=== PATIENT | female | born 1960 | race Caucasian/White ===

== ENCOUNTER 2024-06-20 08:58 | Outpatient (OUT) | payer MEDICARE, SELFPAY ==
--- NOTE | 2024-06-20 09:18 | MM_ITS ---
Patient Name: SUSANNE CHERY MR#: [id number] : 1960 Exam Date: 06/20/2024 Ordering Doctor: DR. PEARL STEELE . RADIOLOGY REPORT PROCEDURE: MM TOMOSYNTHESIS SCREENING BI COMPARISON: MG MAMM SCREEN 3D WERNER CAD, 06/07/2021. INDICATIONS: Screening Calculator Name NCI Breast Cancer Risk Assessment Tool 5 Year Breast Cancer Risk 2.10% Lifetime Breast Cancer Risk 7.30% Personal Breast Cancer No Personal Ovarian Cancer No Treatments None Family Cancers Mother with colon cancer at age 64. LOCATION: [facility] BREAST COMPOSITION: There are scattered areas of fibroglandular density. FINDINGS: DIAGNOSTIC CATEGORY 1--NEGATIVE. NO CHANGE FROM COMPARISON ASSESSMENT. Scattered benign-appearing calcifications are present. RIGHT BREAST: No significant suspicious finding. LEFT BREAST: No significant suspicious finding. RECOMMENDATIONS: ROUTINE MAMMOGRAM AND CLINICAL EVALUATION IN 12 MONTHS. PLEASE NOTE: A NORMAL MAMMOGRAM DOES NOT EXCLUDE THE POSSIBILITY OF BREAST CANCER. A CLINICALLY SUSPICIOUS PALPABLE LUMP SHOULD BE BIOPSIED. Dictated by: Jerrell Bradford MD on 06/20/2024 at 14:14 Approved by: Jerrell Bradford MD on 06/20/2024 at 14:15
== END 2024-06-20 08:59 | disposition home or self-care (01) ==
LOC: MAMMO 08:58
PROVIDERS: PCP Family Medicine; Visit Provider Family Medicine
DX: Z12.31 Encounter for screening mammogram for malignant neoplasm of breast (principal); Z80.0 Family history of malignant neoplasm of digestive organs
CPT/HCPCS: 77063; 77067

== ENCOUNTER 2025-06-25 09:23 | Outpatient (OUT) | payer MEDICARE, SELFPAY ==
--- OUTSIDE RECORDS SUMMARY | 2025-06-25 09:26 | XMS_ITS | Clinical Summary ---
Author Organization [facility] Address [address] [place] [address] Care Team Providers Care Design And Sales Consultant Name Role Phone Dacia Norwood MD Primary Care Provider [phone] Allergies Active AllergyReactionsCriticalityNoted DateCommentsAlendronateGI Upset 02/07/2022 GI upset/digestive issues Medications MedicationSigDispense QuantityRefillsLast FilledStart DateEnd DateStatus cyanocobalamin (VITAMIN B-12) 1,000 mcg tab Take 1,000 mcg by mouth once daily.09/04/2021ctive ascorbic acid (VITAMIN C ORAL) Take by mouth once daily.Active losartan (COZAAR) 50 mg tablet Take 50 mg by mouth once daily.12/22/2021ctive dicyclomine (BENTYL) 10 mg capsule Take 10 mg by mouth.11/10/2022ctive predniSONE (DELTASONE) 5 mg tablet Indications:Rheumatoid arthritis involving multiple sites with positive rheumatoid factor (HCC)TAKE 6 TABS X1DAY,5 TABS X1DAY,4 TABS X1DAY,3 TABS X1DAY,2 TABS X1DAY,THEN 2 TABS DAILY*WITH FOOD 21 tablet ctive Ibandronate (BONIVA) 150 mg tablet Indications:Steroid-induced osteoporosisTake 1 tablet by mouth once every month. In AM with cup of water on empty stomach. Nothing else by mouth and stay upright for 60 min. 3 tablet 5Active hydrOXYchloroQUINE (PLAQUENIL) 200 mg tablet Indications:Rheumatoid arthritis involving multiple sites with positive rheumatoid factor (HCC)Take 1.5 tablets by mouth once daily. 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 May cause diarrhea. 60 tablet 5Active leflunomide (ARAVA) 10 mg tablet Indications:Rheumatoid arthritis involving multiple sites with positive rheumatoid factor (HCC)TAKE 1 TABLET BY MOUTH EVERY DAY WITH FOOD.NO ALCOHOL.HOLD IF ON ANTIBIOTICS OR ILL. 90 tablet 5Active Active Problems ProblemNoted DateDiagnosed DatePseudogout involving multiple rtishz8411/28/2023 Chondrocalcinosis due to dicalcium phosphate crystals, multiple sites11/28/2023 Bone erosion determined by x-ray11/28/2023ersonal history of other medical unnfsrfdo77/26/2022teroid-induced mbhigxqmxlvy49/26/2022Long term current use of systemic vtshytye85/26/2022Elevated C-reactive protein (CRP)01/14/2022 Elevated sed rate01/14/2022yclic citrullinated peptide (CCP) antibody positive 01/14/2022steopenia of multiple sites01/14/2022NA /08/2022heumatoid arthritis involving multiple sites with positive rheumatoid hkkajf9601/14/2022 Anemia of chronic yxqpujp5001/14/2022Left leg lwgqpeum09/08/2022ilateral anterior knee pain01/14/2022ilateral hand pain01/14/2022Long-term use of Plaquenil 01/14/2022econdary osteoarthritis of multiple sites01/14/2022Long-term use of high-risk gpupqestzz76/08/2022Family history of Crohn's jlwfcaq6001/14/2022Family history of rheumatoid tjrgfkoft55/08/2022 Immunizations ImmunizationAdministration DatesNext Dueinfluenza (IIV3) vaccine, trivalent, PF (AFLURIA, FLUARIX, FLULAVAL, FLUVIRIN, FLUZONE)03/27/2017,03/24/2016,05/01/2015 influenza (IIV4) vaccine, age 6 mo - 64 yr, quadrivalent, PF (AFLURIA, FLUARIX, FLULAVAL, FLUZONE)05/08/2020influenza (ccIIV4) vaccine, age 6+ mo, quadrivalent, PF (FLUCELVAX)07/12/2021,07/24/2018pneumococcal conjugate (PCV13) vaccine, 13 valent (PREVNAR 13)07/24/2018tetanus diphtheria pertussis (Tdap) vaccine, age 7+ yr (ADACEL, BOOSTRIX)11/22/2017zoster (RZV) vaccine, recombinant (SHINGRIX) 10/20/2020,06/03/2020 Social History Tobacco UseTypesPacks/DayYears UsedDateSmoking Tobacco: NeverSmokeless Tobacco: Never Tobacco Cessation:Counseling Given: Not Answered PHQ-2AnswerDate RecordedPHQ-2 gsnfm1134Area Deprivation IndexAnswerDate RecordedNational Score (1-100), lower number is lower xrin150111/24/2022State Score (1-10), lower number is lower fzoo5383Data from: https://www.neighborhoodatlas.medicine.[facility].edu/. Last address used for [address] [id number] and Gender InformationValueDate RecordedSex Assigned at BirthNot on fileLegal SexFemale 09/09/2021 3:11 PM ESTGender IdentityNot on fileSexual OrientationNot on file Last Filed Vital Signs Vital SignReadingTime TakenCommentsBlood Eeswmhzq336/7205 12:11 PM EDT Svebw202611/27/2023 12:11 PM GINTxfavaixdfp64.7 ??C (98 ??F)01/14/2022 2:17 PM EDT Respiratory Rate--Oxygen Utvyulmedu03%04/04/2022 2:39 PM EDTInhaled Oxygen Concentration--Wdfenq72.2 kg (104 lb)11/27/2023 12:11 PM JKMLzqsum537.5 cm (5' 2 )04/04/2022 2:39 PM EDTBody Mass Index19.02004/04/2022 2:39 PM EDT Plan of Treatment DateTypeDepartmentCare Team (Latest Contact Info)Zibwtyoxygd37/03/2026 9:40 AM EDTOffice Visit Rheumatology [address] [place] [address] [place] [address] Arabella Luna MD [address] [place], [place] [id number] Follow up visit for rheumatoid arthritis/pseudogout/osteoarthritis/osteoporosis 6-12monthsHealth MaintenanceDue DateLast DoneCommentsCervical Cancer Screening 1969Anxiety Lklvpyjed40/26/1976Depression Cqxkowfdl13/26/1976Hepatitis C Ccqvrhvnq56/26/1976Mammogram Rxhasutjl58/26/1998CT Udtofdnvefny36/26/2003 Cologuard (FIT-DNA)01/02/20034786Btvwvxzrrgg23/26/2003Colorectal Cancer Screening 2003Fecal Occult Blood2003Lipid Pntrheekj25/26/2003Sigmoidoscopy 2003RSV Vaccine (1 - Risk 50-74 years 1-dose series)01/03/2008Pneumococcal Vaccine: 50+ (2 of 2 - PPSV23, PCV20, or PCV21)Advance Directive Fruvbdiusw31/01/2025Medicare Advantage Annual Wellness Visit07/10/2024 Covid-19 Vaccine ( season)/, 10/02/2020, 09/02/2020Influenza Vaccine (#1)/02/2024, 06/21/2023, 06/21/2023, Additional history existsBone Density Pbsoaewer03, 12/13/2021 DTaP,Tdap,Td Vaccine (2 - Td or Tdap)Diabetes Screening , 10/21/2024, 11/21/2023, Additional history existsShingrix VqjxbzhIylljusvg70/13/2021, 06/03/2020 Procedures Procedure NamePriorityDate/TimeAssociated DiagnosisCommentsCOMPREHENSIVE METABOLIC SDGNEWqsijuv66/21/2025 1:04 PM EDT Elevated LFTs DXA-AXIAL LQPLBGXMZmvjihk41/18/2025 12:32 PM EDT Postmenopausal osteoporosis of multiple sites from Last 3 Months or Most Recently Relevant to Health Maintenance Results * (ABNORMAL) COMPREHENSIVE METABOLIC PANEL (01/27/2025 1:04 PM EDT)Component ValueRef RangeTest MethodAnalysis TimePerformed AtPathologist Signature Protein, Total6.76.3 - 8.0 g/dL01/27/2025 3:15 PM EDTNORTHEN[facility] LABAlbumin4.43.9 - 4.9 g/dL01/27/2025 3:15 PM [facility]TNOR[facility] LABCalcium, Total10.08.5 - 10.2 mg/dL01/27/2025 3:15 PM EDTNORIVER PARK HOSPITAL LABBilirubin, Total0.40.2 - 1.3 mg/dL 01/27/2025 3:15 PM EDTWE[facility] LABAlkaline Igcimmaxioo3155 - 123 U/L01/27/2025 3:15 PM [facility] QJAQXX47(H)13 - 35 U/L01/27/2025 3:15 PM EDTWE[facility] NLGKFF743 - 38 U/L01/27/2025 3:15 PM [facility] MHPJidopbj6659 - 99 mg/dL01/27/2025 3:15 PM [facility] LABComment: The [place] Diabetes Association (ADA) provides guidance for cutoff values for fasting glucose andrandom glucose. The ADA defines fasting as no caloric intake for at least 8 hours. Fasting plasma glucose results between 100 to 125 mg/dL indicate increased risk for diabetes (prediabetes). Fasting plasma glucose results greater than or equal to 126 mg/dL meet the criteria for diagnosis of diabetes. In the absence of unequivocal hyperglycemia, results should be confirmed by repeat testing. In a patient with classic symptoms of hyperglycemia or hyperglycemic crisis, random plasma glucose results greater than or equal to 200 mg/dL meet the criteria for diagnosis of diabetes. Reference: Standards of Medical Care in Diabetes 2016, [place] Diabetes Association. Diabetes Care. 2016.39(Suppl 1). BUN23(H)7 - 21 mg/dL01/27/2025 3:15 PM [facility] Creatinine0.930.58 - 0.96 mg/dL01/27/2025 3:15 PM [facility] SBADywvnj040088 - 144 mmol/L01/27/2025 3:15 PM EDTWE[facility] LABPotassium4.03.7 - 5.1 mmol/L01/27/2025 3:15 PM EDTWE[facility] OVVGgupiuge54336 - 107 mmol/L01/27/2025 3:15 PM EDT [facility] JUXAM14626 - 30 mmol/L01/27/2025 3:15 PM EDT [facility] LABAnion Gap88 - 15 mmol/L01/27/2025 3:15 PM EDV[facility] LABEstimated Glomerular Filtration Rate68 >=60 mL/min/1.73m 01/27/2025 3:15 PM [facility] LABComment:Estimated Glomerular Filtration Rate (eGFR) is calculated using the 2020 CKD-EPI creatinine equation. This equation utilizes serum creatinine, sex, and age as parameters. The creatinine assay has traceable calibration to isotope dilution- mass spectrometry. Refer to KDIGO guidelines for clinical interpretation. In patients with unstable renal function, e.g. those with acute kidney injury, the eGFRmay not accurately reflect actual GFR.Specimen (Source)Anatomical Location / LateralityCollection Method / VolumeCollection TimeReceived TimeBloodBLOOD SPECIMEN / UnknownVenipuncture / Adkrhud9601/27/2025 1:04 PM EDT01/27/2025 1:04 PM EDT Narrative Authorizing ProviderResult TypeResult StatusMarbaldev Luna MDLABORATORYFinal ResultPerforming OrganizationAddressCity/State/ZIP CodePhone Number [facility] [address] [place] [id number] * DXA-AXIAL SKELETON (10/25/2024 12:32 PM EDT)ComponentValueRef RangeTest Method Analysis TimePerformed AtPathologist SignatureLOWEST T-SCORE-2.6DIVISION OF RADIOLOGYAnatomical RegionLateralityModalityOtherSpecimen (Source)Anatomical Location / LateralityCollection Method / VolumeCollection TimeReceived Time 10/25/2024 12:32 PM EDT Impressions 10/28/2024 9:13 AM EDT IMPRESSION: THE LOWEST T-SCORE IS -2.6 ??IN THE RIGHT HIP THE LOWEST TBS T-SCORE -2.2 RIGHT HIP 1) DIAGNOSIS (based on BMD alone): ??OSTEOPOROSIS TBS CHANGES DIAGNOSIS FROM OSTEOPOROSIS TO OSTEOPENIA. NORMAL BONE ARCHITECTURE DECREASE IN BMD - Caution: Medical conditions other than osteoporosis may cause low bone density, such as osteomalacia or renal osteodystrophy. ??Clinical correlation is necessary. 2) FRACTURE RISK (based on BMD and TBS) - HIGH - Caution: Fracture risk may be increased independent of BMD in patients with corticosteroid use, age greater than 65 years, or a history of prior fragility fracture. ?- FRAX was not calculated: bisphosphonate currently or within the last 2 years RECOMMENDATIONS: Follow-up in 2 years or as clinically indicated. ??Patients that are taking corticosteroids, are transplant recipients or have hyperparathyroidism should have annual follow-up. ??Follow-up scans should always be done on the same machine for accurate comparison. FOR MORE INFORMATION ABOUT DIAGNOSIS AND TREATMENT: [facility] for Osteoporosis and Metabolic Bone Disease:? www.ccf.org/arthritis/osteo National Osteoporosis Foundation:? www.nof.org International Society of Clinical Densitometry www.iscd.org Die Casting Machine Maintainer: [employer]main Transcribe Date/Time: Oct 25 2024 12:36P Dictated by : ARMANDO FERRER MD This examination was interpreted and the report reviewed and electronically signed by: ARMANDO FERRER MD on Oct 28 2024 ??9:11AM ??EST Narrative 10/28/2024 9:13 AM EDT * * *Final Report* * * DATE OF EXAM: Oct 25 2024 12:32PM ?? M1B ?? 0804 ??- ??BD DXA - AXIAL SKELETON -NB ??/ PROCEDURE REASON: Postmenopausal osteoporosis of multiple sites ? * * * * Physician Interpretation * * * * EXAMINATION: DXA BONE DENSITOMETRY BD DXA - AXIAL SKELETON -NB, BD DXA - FOREARM SKELETON -NB, BD DXA TRAB BONE SCORE (TBS)-NB PATIENT DEMOGRAPHICS: ??Age: 64 years, Gender: Female SCANNER INFORMATION: DXA Model: A10 [employer] [id number] Date Scanned: ??10/25/2024 12:32 PM CLINICAL HISTORY: ??DIAGNOSTIC ?? Postmenopausal osteoporosis of multiple sites ?? . RISK FACTORS FOR OSTEOPOROSIS AND ASSOCIATED FRACTURES REPORTED BY THIS PATIENT: Please refer to Bone Health Questionnaire in the EMR CURRENT THERAPY: Please refer to Bone Health Questionnaire in the EMR TECHNICAL LIMITATIONS: Degenerative disease of the spine RESULTS: Comparison made to prior DXA dated: 2021 Lumbar Spine (L1, L2, L3, L4): Total BMD: 0.864 g/cm2, T-score: -1.7, Z-score: 0.2 TBS T-SCORE -0.9 Prior Lumbar spine: 0.872 g/cm2 No statistically significant change Right Femoral Neck: 0.559 g/cm2, T-score -2.6, Z-score -1.0 TBS T-SCORE -2.2 Prior Right Femoral Neck: 0.597 g/cm2 No statistically significant change Right Total Hip: 0.637 g/cm2 , T-score -2.5, Z-score -1.2 ??TBS T-SCORE -2.2 Prior Right Total Hip: 0.683 g/cm2 Statistically significant decrease OF 6.7% Left Femoral Neck: 0.605 g/cm2, T-score -2.2, Z-score -0.6 Prior Left Femoral Neck: 0.628 g/cm2 No statistically significant change Left Total Hip: 0.709 g/cm2, T-score -1.9, Z-score ??-0.6 Prior Left Total Hip: 0.719 g/cm2 No statistically significant change Left Forearm, Distal 1/3 of Radius: 0.645 g/cm2, T-score ??-0.8, Z-score 1.0 CHANGE IS STATISTICALLY SIGNIFICANT IN THE SPINE OR HIP IF GREATER THAN OR EQUAL TO 0.04 g/cm2 VERTEBRAL FRACTURE ASSESSMENT Not performed. TRABECULAR BONE ASSESSMENT TBS score: 1.422 Bone micro-architecture: Normal: normal (> 1.310) Procedure Note Provider, [facility] - 10/28/2024 * * *Final Report* * * DATE OF EXAM: Oct 25 2024 12:32PM M1B 0804 - BD DXA - AXIAL SKELETON -NB / PROCEDURE REASON: Postmenopausal osteoporosis of multiple sites * * * * Physician Interpretation * * * * EXAMINATION: DXA BONE DENSITOMETRY BD DXA - AXIAL SKELETON -NB, BD DXA - FOREARM SKELETON -NB, BD DXA TRAB BONE SCORE (TBS)-NB PATIENT DEMOGRAPHICS: Age: 64 years, Gender: Female SCANNER INFORMATION: DXA Model: A10 [employer] [id number] Date Scanned: 10/25/2024 12:32 PM CLINICAL HISTORY: DIAGNOSTIC Postmenopausal osteoporosis of multiple sites . RISK FACTORS FOR OSTEOPOROSIS AND ASSOCIATED FRACTURES REPORTED BY THIS PATIENT: Please refer to Bone Health Questionnaire in the EMR CURRENT THERAPY: Please refer to Bone Health Questionnaire in the EMR TECHNICAL LIMITATIONS: Degenerative disease of the spine RESULTS: Comparison made to prior DXA dated: 2021 Lumbar Spine (L1, L2, L3, L4): Total BMD: 0.864 g/cm2, T-score: -1.7, Z-score: 0.2 TBS T-SCORE -0.9 Prior Lumbar spine: 0.872 g/cm2 No statistically significant change Right Femoral Neck: 0.559 g/cm2, T-score -2.6, Z-score -1.0 TBS T-SCORE -2.2 Prior Right Femoral Neck: 0.597 g/cm2 No statistically significant change Right Total Hip: 0.637 g/cm2 , T-score -2.5, Z-score -1.2 TBS T-SCORE -2.2 Prior Right Total Hip: 0.683 g/cm2 Statistically significant decrease OF 6.7% Left Femoral Neck: 0.605 g/cm2, T-score -2.2, Z-score -0.6 Prior Left Femoral Neck: 0.628 g/cm2 No statistically significant change Left Total Hip: 0.709 g/cm2, T-score -1.9, Z-score -0.6 Prior Left Total Hip: 0.719 g/cm2 No statistically significant change Left Forearm, Distal 1/3 of Radius: 0.645 g/cm2, T-score -0.8, Z-score 1.0 CHANGE IS STATISTICALLY SIGNIFICANT IN THE SPINE OR HIP IF GREATER THAN OR EQUAL TO 0.04 g/cm2 VERTEBRAL FRACTURE ASSESSMENT Not performed. TRABECULAR BONE ASSESSMENT TBS score: 1.422 Bone micro-architecture: Normal: normal (> 1.310) IMPRESSION IMPRESSION: THE LOWEST T-SCORE IS -2.6 IN THE RIGHT HIP THE LOWEST TBS T-SCORE -2.2 RIGHT HIP 1) DIAGNOSIS (based on BMD alone): OSTEOPOROSIS TBS CHANGES DIAGNOSIS FROM OSTEOPOROSIS TO OSTEOPENIA. NORMAL BONE ARCHITECTURE DECREASE IN BMD - Caution: Medical conditions other than osteoporosis may cause low bone density, such as osteomalacia or renal osteodystrophy. Clinical correlation is necessary. 2) FRACTURE RISK (based on BMD and TBS) - HIGH - Caution: Fracture risk may be increased independent of BMD in patients with corticosteroid use, age greater than 65 years, or a history of prior fragility fracture. - FRAX was not calculated: bisphosphonate currently or within the last 2 years RECOMMENDATIONS: Follow-up in 2 years or as clinically indicated. Patients that are taking corticosteroids, are transplant recipients or have hyperparathyroidism should have annual follow-up. Follow-up scans should always be done on the same machine for accurate comparison. FOR MORE INFORMATION ABOUT DIAGNOSIS AND TREATMENT: [facility] for Osteoporosis and Metabolic Bone Disease:? www.ccf.org/arthritis/osteo National Osteoporosis Foundation:? www.nof.org International Society of Clinical Densitometry www.iscd.org Die Casting Machine Maintainer: [employer]main Transcribe Date/Time: Oct 25 2024 12:36P Dictated by : ARMANDO FERRER MD This examination was interpreted and the report reviewed and electronically signed by: ARMANDO FERRER MD on Oct 28 2024 9:11AM EST Authorizing ProviderResult TypeResult StatusMargaret Jeremy MDRAD-PAMAFinal Result from Last 3 Months or Most Recently Relevant to Health Maintenance Insurance Care Teams Team MemberRelationshipSpecialtyStart DateEnd Date Dacia Norwood MD [address] [id number] [facility]01/14/22
--- OUTSIDE RECORDS SUMMARY | 2025-06-25 09:26 | XMS_ITS | Clinical Summary ---
Author Organization [facility] Address [address] [place] [address] Care Team Providers Care Government Service Executive Name Role Phone Unavailable Primary Care Provider Unavailabl e Social History Tobacco UseTypesPacks/DayYears UsedDateSmoking Tobacco: Never Assessed CommentsUnknownSex and Gender InformationValueDate RecordedSex Assigned at Not on fileLegal DezOmbban21/01/2023 8:33 PM EDTGender IdentityNot on fileSexual OrientationNot on file Last Filed Vital Signs Vital SignReadingTime TakenCommentsBlood Zqygtjhm326/8003 12:00 PM EST Pulse--Temperature--Respiratory Rate--Oxygen Saturation--Inhaled Oxygen Concentration--Eyosnm15.9 kg (110 lb)10/11/2021 12:00 PM TMOKbsgvn749.5 cm (5' 2 )10/11/2021 12:00 PM EDTBody Mass Index20.1204 12:00 PM EDT Plan of Treatment Not on file
--- NOTE | 2025-06-25 09:28 | MM_ITS ---
Patient Name: SUSANNE CHERY MR#: [id number] : 1960 Exam Date: 06/25/2025 Ordering Doctor: OTILIO CLANCY . RADIOLOGY REPORT PROCEDURE: MM TOMOSYNTHESIS SCREENING BI COMPARISON: MM TOMOSYNTHESIS SCREENING BI, 06/20/2024. MG MAMM SCREEN 3D WERNER CAD, 06/07/2021. MG MAMM SCREEN WERNER W CAD, 02/14/2017. MG MAMM WERNER SCRN W CAD DIG, 05/15/2013. INDICATIONS: Screening Calculator Name NCI Breast Cancer Risk Assessment Tool 5 Year Breast Cancer Risk 2.10% Lifetime Breast Cancer Risk 7.10% Personal Breast Cancer No Personal Ovarian Cancer No Treatments None Family Cancers Mother with colon cancer at age 64. LOCATION: [facility] BREAST COMPOSITION: There are scattered areas of fibroglandular density. FINDINGS: RIGHT BREAST: No significant suspicious finding. LEFT BREAST: No significant suspicious finding. DIAGNOSTIC CATEGORY 1--NEGATIVE. RECOMMENDATIONS: ROUTINE MAMMOGRAM AND CLINICAL EVALUATION IN 12 MONTHS. Dictated by: Go Leonardo DO on 06/25/2025 at 10:31 Approved by: Go Loenardo DO on 06/25/2025 at 11:10
== END 2025-06-25 09:24 | disposition home or self-care (01) ==
LOC: MAMMO 09:24
PROVIDERS: PCP Nurse Practitioner; Visit Provider Nurse Practitioner
DX: Z12.31 Encounter for screening mammogram for malignant neoplasm of breast (principal); Z80.0 Family history of malignant neoplasm of digestive organs
CPT/HCPCS: 77063; 77067